=== PATIENT | male | born 1950 | race Caucasian/White ===

== ENCOUNTER 2017-06-05 13:05 | Emergency (ER) | payer OTHER ==
[2017-06-05] MEDS ORDERED: oxyCODONE/Acetamin 5/325 MG* TAB PO ONE (14:04)
--- NOTE | 2017-06-05 15:05 | RAD ---
HISTORY: Back pain, injury COMPARISONS: None VIEWS: 5 , Frontal, lateral, coned-down lateral sacral, and bilateral oblique views of the lumbar spine. FINDINGS: ALIGNMENT: The alignment is normal. VERTEBRAL BODIES: There is diffuse osteopenia. JOINTS: There is facet osteoarthritis most pronounced along the lower lumbar spine INTERVERTEBRAL DISCS: There is diffuse loss of intervertebral disc height. SOFT TISSUE: There is atherosclerosis of the abdominal aorta. OTHER: There is mild osteoarthritis of the hips and SI joints IMPRESSION: OSTEOPENIA. DEGENERATIVE DISC DISEASE AND OSTEOARTHRITIS.
[2017-06-05 16:11] VITALS: BP 138/82
--- NOTE | 2017-06-05 19:03 | ED ---
Lionel Jane Elizabeth, scribed for Thom Philippe on 06/05/17 at 1441 . Back Pain - HPI Summary HPI Summary: The patient is a 66 year old male complaining of lower back pain. Patient reports that while exerting himself earlier today, he heard a pop. He is ambulatory. Patient took 2 ibuprofen prior to arrival. The patient notes that he previously injured his back as a child. - History of Current Complaint Chief Complaint: EDBackInjuryPain Stated Complaint: BACK PAIN Time Seen by Provider: 06/05/17 13:46 Hx Obtained From: Patient Onset/Duration: Lasting Hours, Still Present Timing: Constant, Lasting Hours Pain Intensity: 10 Pain Scale Used: 0-10 Numeric Aggravating Symptom(s): Movement Associated Signs And Symptoms: Positive: Flank Pain - Allergies/Home Medications Allergies/Adverse Reactions: Allergies Allergy/AdvReac Type Severity Reaction Status Date / Time No Known Allergies Allergy Verified 06/05/17 13:10 PMH/Surg Hx/FS Hx/Imm Hx Opthamlomology History: Denies: Hx Legally Blind EENT History: Denies: Hx Deafness Infectious Disease History: No Infectious Disease History: Denies: Traveled Outside the [place] in Last 30 Days - Family History Known Family History: Positive: Unknown - Social History Alcohol Use: Daily Alcohol Amount: wine Substance Use Type: Reports: None Smoking Status (MU): Never Smoked Tobacco Review of Systems Negative: Epistaxis Positive: Other - lower back pain All Other Systems Reviewed And Are Negative: Yes Physical Exam - Summary Physical Exam Summary: Appearance: Well appearing, no pain distress Skin: warm, dry, reflects adequate perfusion Head/face: normal Eyes: EOMI, KELLY ENT: normal Neck: supple, non-tender Respiratory: CTA, breath sounds present Cardiovascular: RRR, pulses symmetrical Abdomen: non-tender, soft Bowel: present Musculoskeletal: strength/ROM intact, mild tenderness over the lumbar spine and spasm Neuro: normal, sensory motor intact, A&Ox3 Triage Information Reviewed: Yes Vital Signs On Initial Exam: Initial Vitals Temp Pulse Resp BP Pulse Ox 96.1 F 67 14 151/115 99 06/05/17 13:08 06/05/17 13:08 06/05/17 13:08 06/05/17 13:08 06/05/17 13:08 Vital Signs Reviewed: Yes Diagnostics - Vital Signs Vital Signs Temp Pulse Resp BP Pulse Ox 06/05/17 14:13 16 06/05/17 13:08 96.1 F 67 14 151/115 99 - Laboratory Lab Statement: Any lab studies that have been ordered have been reviewed, and results considered in the medical decision making process. - CT CT Lumbar Spine CT Interpretation: Positive (See Comments) - IMPRESSION: OSTEOPENIA. DEGENERATIVE DISC DISEASE AND OSTEOARTHRITIS. Dr. Philippe has reviewed this report. CT Interpretation Completed By: Radiologist Back Pain Course/Dx - Course Course Of Treatment: The patient is a 66 year old male complaining of lower back pain. CT lumbar spine reveals, per radiologist, osteopenia, degenerative disc disease and osteoarthritis. Dr. Philippe has reviewed this radiology report. In the ED course the patient was given oxycodone. Patient will be discharged home with diagnosis of back pain. Patient is instructed to follow up with his primary care physician in 3 days. The patient is agreeable with this plan. - Diagnoses Differential Diagnosis/HQI/PQRI: Positive: Fracture, Strain, Sprain Provider Diagnoses: Back pain Discharge - Sign-Out/Discharge Documenting (check all that apply): Discharge - discharge home - Discharge Plan Condition: Stable Disposition: HOME Prescriptions: Ibuprofen TAB* [Motrin TAB* 600 MG] 600 mg PO Q8H PRN #20 tab MDD 3 PRN Reason: Pain Oxycodone HCl/Acetaminophen [Percocet] 1 tab PO TID #10 tab MDD 3 Patient Education Materials: Back Pain (ED) Referrals: Pako Machado MD [Primary Care Provider] - Additional Instructions: Follow up with primary care physician in 3 days. Return to the ED with any new or worsening symptoms. - Billing Disposition and Condition Condition: STABLE Disposition: HOME The documentation as recorded by the Lionel carlton Elizabeth accurately reflects the service I personally performed and the decisions made by Denae choudhury Emmanuel.
== END 2017-06-05 16:10 | disposition home or self-care (01) ==
LOC: ED 13:05
DX: M54.5 Low back pain (principal); M85.88 Other specified disorders of bone density and structure, other site; M16.0 Bilateral primary osteoarthritis of hip; M47.817 Spondylosis without myelopathy or radiculopathy, lumbosacral region
CPT/HCPCS: 72110; 99282; A9270-GY